=== PATIENT | male | born 1995 | race Two or more races ===

== ENCOUNTER 2022-12-12 11:58 | Emergency (ER) | payer SELFPAY ==
[~2022-12-12] VITALS: Ht 180.3 cm; Wt 120.3 kg
[2022-12-12 12:15] VITALS: BP 132/75; PULSE 79; RESP 16; TEMP 97.7; O2SAT 96
[2022-12-12] MEDS ORDERED: KETOROLAC TROMETH 30 MG/ML 1ML VIAL IM ONE (15:15)
[2022-12-12] MEDS ORDERED: LORATADINE 10 MG TAB PO ONE (15:15)
[2022-12-12] MEDS ORDERED: ACETAMINOPHEN 500 MG TAB PO ONE (15:15)
[2022-12-12] MEDS ORDERED: HYDROcodone-ACET 10/325MG TAB PO ONE (16:30)
== END 2022-12-12 17:25 | disposition home or self-care (01) ==
LOC: ER 11:58
DX: R51.9 Headache, unspecified (principal)
CPT/HCPCS: 96372; 99284; J1885